=== PATIENT | female | born 1970 | race Caucasian/White ===

== ENCOUNTER 2023-02-05 11:47 | Inpatient (IN) | payer OTHER ==
[2023-02-05] VITALS (10 sets, daily range): BP systolic 101–124; BP diastolic 31–73
[~2023-02-05] VITALS: Ht 170.1 cm; Wt 73.9 kg
[~2023-02-05 11:47] MED LIST: IBU-8800 MG PO; NAPROSYN500 MG PO; NORFLEX100 MG PO; VICODIN 5/500 505 MG PO
[2023-02-05 12:12] LABS: BILIRUBIN Negative (Negative); BLOOD Negative (Negative); CLARITY Clear (Clear); COLOR Yellow (Yellow); GLUCOSE Negative (Negative); KETONE Trace (Negative); LEUKO ESTERASE Negative (Negative); NITRITE Negative (Negative)
[2023-02-05 12:16] LABS: PH 8.5 (4.5-8.0)
[2023-02-05 12:24] LABS: MUCOUS 1+; RBC 0-2 rbc/hpf (0-2)
[2023-02-05 12:25] LABS: BACTERIA 2+
[2023-02-05 12:52] LABS: BASO % 0.3 % (0.0-1.0); EOS % 0.2 % (1.0-4.0); HEMATOCRIT 43.8 % (37.0-47.0); LYMPH # 1.1 10*3/uL (1.3-4.4); LYMPH % 9.4 % (27.0-41.0); MEAN CELL VOLUME 95.8 fl (81.0-99.0); MEAN CORPUSCULAR HGB 32.4 pg (27.0-31.0); MEAN CORPUSCULAR HGB CONC 33.8 g/dl (33.0-37.0); MEAN PLATELET VOLUME 10.3 fl (9.6-12.3); MONO # 0.3 10*3/uL (0.1-1.0); MONO % 2.7 % (3.0-9.0); NEUT # 10.2 10*3/uL (2.3-7.9); PLATELET COUNT AUTOMATED 237 10*3/uL (130-400); RED BLOOD COUNT 4.57 10*6/uL (4.10-5.10); RED CELL DISTRI WIDTH 12.5 % (0-14.5); WHITE BLOOD COUNT 11.7 10*3/uL (4.8-10.8)
[2023-02-05 13:14] LABS: ALKALINE PHOSPHATASE 87 U/L (46-116); BUN 6 mg/dl (9-23); CHLORIDE 106 mmol/L (98-107); LIPASE 37 U/L (12-53); POTASSIUM 4.1 mmol/L (3.4-5.1); SGPT/ALT 17 U/L (10-49); TOTAL PROTEIN 7.4 gm/dL (6.0-8.0)
[2023-02-05] MEDS ORDERED: SYNTHROID,LEVO88 MCG PO (19:07)
[2023-02-05] MEDS ORDERED: BUPROPION XL300 MG PO (19:07)
[2023-02-05] MEDS ORDERED: LIPITOR40 MG PO (19:07)
[2023-02-06] VITALS: BP 98/52
[2023-02-06 06:02] LABS: BASO % 0.1 % (0.0-1.0); HEMATOCRIT 38.7 % (37.0-47.0); LYMPH # 0.7 10*3/uL (1.3-4.4); LYMPH % 8.8 % (27.0-41.0); MEAN CELL VOLUME 97.2 fl (81.0-99.0); MEAN CORPUSCULAR HGB 32.4 pg (27.0-31.0); MEAN CORPUSCULAR HGB CONC 33.3 g/dl (33.0-37.0); MEAN PLATELET VOLUME 10.7 fl (9.6-12.3); MONO # 0.1 10*3/uL (0.1-1.0); MONO % 1.5 % (3.0-9.0); NEUT # 7.5 10*3/uL (2.3-7.9); NEUT % 89.1 % (47.0-73.0); PLATELET COUNT AUTOMATED 197 10*3/uL (130-400); RED BLOOD COUNT 3.98 10*6/uL (4.10-5.10); RED CELL DISTRI WIDTH 12.4 % (0-14.5); WHITE BLOOD COUNT 8.4 10*3/uL (4.8-10.8)
[2023-02-06 06:18] LABS: ALKALINE PHOSPHATASE 70 U/L (46-116); BUN 7 mg/dl (9-23); CHLORIDE 107 mmol/L (98-107); CHOLESTEROL 124 mg/dL (<200); FREE T4 1.06 ng/dl (0.89-1.76); LDL CHOLESTEROL 45 mg/dL (9-159); POTASSIUM 4.4 mmol/L (3.4-5.1); SGPT/ALT 10 U/L (10-49); TOTAL PROTEIN 6.2 gm/dL (6.0-8.0); TRIGLYCERIDES 53 mg/dl (<150)
[2023-02-06 07:53] LABS: VITAMIN D, 25-HYDROXY 20.3 ng/mL (30-100)
[2023-02-06 08:00] VITALS: BP 98/40
[2023-02-06] MEDS ORDERED: DULCOLAX STOOL100 M1 PO (09:50)
[2023-02-06] MEDS ORDERED: VITAMIN D350 MCG PO (09:50)
[2023-02-06] MEDS ORDERED: ONDANSETRON HYDR4 M1 PO (09:50)
[2023-02-06] MEDS ORDERED: HYDROCODONE-AC1 EAC1 PO (09:50)
== END 2023-02-06 11:15 | disposition home or self-care (01) | DRG 342 ==
LOC: ED 11:47 → EDHOLD 16:20 → 4E 16:20
PROVIDERS: Internal Medicine; ADMIT Family Medicine; ATTEND Family Medicine
PROC: 0DTJ4ZZ Resection of Appendix, Percutaneous Endoscopic Approach (ICD-10-PCS; principal; 2023-02-05)
DX: K35.80 Unspecified acute appendicitis (principal); E87.20 Acidosis, unspecified; E03.9 Hypothyroidism, unspecified; R73.9 Hyperglycemia, unspecified; E78.5 Hyperlipidemia, unspecified; D72.829 Elevated white blood cell count, unspecified; Z91.041 Radiographic dye allergy status; Z91.040 Latex allergy status; Z98.51 Tubal ligation status